=== PATIENT | female | born 1965 ===

== ENCOUNTER → 2017-12-28 | Outpatient (CLI) | payer MEDICARE, OTHER ==
[~2017-12-28] VITALS: Ht 167.6 cm; Wt 102.5 kg
[~2017-12-28] MED LIST: CALC1TAB PO; DICL4100G TP; DULO60CA44 PO; HYDR200T4 PO; LINA145C PO; LORA2TAB2 PO; MELO-107 PO; OMEP20 PO; VITAD1000 PO; ZOLP10TA7 PO
[2017-12-28 14:12] VITALS: BP 134/75
== END | disposition home or self-care (01) ==
LOC: SRCNTR 14:08
PROVIDERS: ATTEND Internal Medicine Critical Care Medicine
DX: D86.9 Sarcoidosis, unspecified (principal); E66.01 Morbid (severe) obesity due to excess calories; G47.33 Obstructive sleep apnea (adult) (pediatric); M19.90 Unspecified osteoarthritis, unspecified site; F41.9 Anxiety disorder, unspecified; Z80.3 Family history of malignant neoplasm of breast; Z82.49 Family history of ischemic heart disease and other diseases of the circulatory system
CPT/HCPCS: G0463

== ENCOUNTER → 2018-05-06 | Outpatient (CLI) | payer MEDICARE, OTHER ==
[~2018-05-06] VITALS: Ht 167.6 cm; Wt 105.0 kg
[2018-05-06 15:03] VITALS: BP 128/60
== END | disposition home or self-care (01) ==
LOC: SRCNTR 14:11
PROVIDERS: ATTEND Internal Medicine Critical Care Medicine
DX: G47.33 Obstructive sleep apnea (adult) (pediatric) (principal); E66.01 Morbid (severe) obesity due to excess calories; D86.9 Sarcoidosis, unspecified
CPT/HCPCS: G0463